=== PATIENT | female | born 1975 | race American Indian/Alaskan Native ===

== ENCOUNTER 2021-09-22 19:27 | Emergency (ER) | payer OTHER, BC ==
[~2021-09-22] VITALS: Ht 160 cm; Wt 133.5 kg
[2021-09-22] MEDS ORDERED: ALLEGRA-D 24 H1 EACH PO (19:51)
== END 2021-09-22 20:40 | disposition home or self-care (01) ==
LOC: ED 19:27
DX: S61.217A Laceration without foreign body of left little finger without damage to nail, initial encounter (principal); Z79.899 Other long term (current) drug therapy; W26.8XXA Contact with other sharp object(s), not elsewhere classified, initial encounter; Y99.0 Civilian activity done for income or pay
CPT/HCPCS: 12001; 99282-25